=== PATIENT | male | born 1975 ===

== ENCOUNTER 2018-02-12 14:53 | Emergency (ER) | payer MEDICAID ==
[2018-02-12 15:45] VITALS: RESP 18; BMI 20.5
--- NOTE | 2018-02-12 16:05 | ED PDOC ---
Arrival/HPI <Reyna Castro - Last Filed: 02/12/18 16:08> <Thaddeus Cali DO - Last Filed: 02/12/18 18:42> - General Chief Complaint: Lower Extremity Problem/Injury Time Seen by Provider: 02/12/18 15:44 - History of Present Illness Narrative History of Present Illness (Text): 02/12/18 15:59 Patient is a 42 year old male with no significant past medical history who presents to the Emergency department complaining of right lateral thigh pain. Patient says he has had this intermittently for >1 year and describes it as sharp, stabbing-like pain that lasts approximately 2 minutes. Patient says the first time it happened he woke up one morning with the pain. Patient states he came in today because the pain has become to great for him to tolerate. Patient says the pain comes on randomly and is not associated with any specific event. Today the patient noticed it while he was driving. Patient currently denies pain and is having numbness in the area instead. He said it normally alternates between pain and numbness. 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 Patient denies radiation of the pain down to his foot or up towards his back. Denies fever, chills, chest pain, shortness of breath palpitations, cough, calf pain/tenderness, headache, dizziness. (Reyna Castro) Past Medical History - Infectious Disease Hx of Infectious Diseases: None - Tetanus Immunization Tetanus Immunization: Up to Date - Past Medical History Past Medical History: No Previous - Cardiac Hx Cardiac Disorders: No - Pulmonary Hx Respiratory Disorders: No - Neurological Hx Neurological Disorder: No - HEENT Hx HEENT Disorder: No - Renal Hx Renal Disorder: No - Endocrine/Metabolic Hx Endocrine Disorders: No - Hematological/Oncological Hx Blood Disorders: No - Integumentary Hx Dermatological Disorder: No - Musculoskeletal/Rheumatological Hx Musculoskeletal Disorders: No - Gastrointestinal Hx Gastrointestinal Disorders: No - Genitourinary/Gynecological Hx Genitourinary Disorders: No - Psychiatric Hx Psychophysiologic Disorder: No Hx Anxiety: No Hx Bipolar Disorder: No Hx Depression: No Hx Emotional Abuse: No Hx Hallucinations: No Hx Panic Disorder: No Hx Post Traumatic Stress Disorder: No Hx Psychosis: No Hx Physical Abuse: No Hx Schizophrenia: No Hx Sexual Abuse: No Hx Substance Use: Yes (Marijuana) - Past Surgical History Past Surgical History: No Previous - Anesthesia Hx Anesthesia: No Hx Anesthesia Reactions: No Hx Malignant Hyperthermia: No - Suicidal Assessment Feels Threatened In Home Enviroment: No <MatthewReyna - Last Filed: 02/12/18 16:08> Family/Social History Smoking Status: Light Smoker < 10 Cigarettes Daily Hx Alcohol Use: No Hx Substance Use: Yes (Marijuana) Hx Substance Use Treatment: No <MatthewReyna - Last Filed: 02/12/18 16:08> Family/Social History: No Known Family HX <Thaddeus Cali DO - Last Filed: 02/12/18 18:42> Allergies/Home Meds <MatthewReyna - Last Filed: 02/12/18 16:08> <Thaddeus Cali DO - Last Filed: 02/12/18 18:42> Allergies/Adverse Reactions: Allergies No Known Allergies Allergy (Verified 02/12/18 15:46) Review of Systems - Review of Systems Constitutional: Normal Eyes: Normal ENT: Normal Respiratory: Normal. absent: SOB, Cough Cardiovascular: Normal. absent: Chest Pain, Palpitations, Edema, Calf Pain, CHRIS Gastrointestinal: Normal. absent: Abdominal Pain, Constipation, Diarrhea, Nausea, Vomiting Genitourinary Male: Normal. absent: Dysuria, Frequency, Hematuria Musculoskeletal: Myalgias (right lateral thigh). absent: Back Pain, Neck Pain Skin: Normal. absent: Rash, Pruritis Neurological: Other (parasthesia of right lateral thigh). absent: Headache, Dizziness Endocrine: Normal Hemo/Lymphatic: Normal Psychiatric: Normal <Reyna Castro - Last Filed: 02/12/18 16:08> Physical Exam - Systems Exam Head: Present: Atraumatic, Normocephalic Pupils: Present: PERRL Extroacular Muscles: Present: EOMI Conjunctiva: Present: Normal Mouth: Present: Moist Mucous Membranes Neck: Present: Normal Range of Motion Respiratory/Chest: Present: Clear to Auscultation, Good Air Exchange. No: Respiratory Distress, Accessory Muscle Use Cardiovascular: Present: Regular Rate and Rhythm, Normal S1, S2. No: Murmurs Abdomen: Present: Normal Bowel Sounds. No: Tenderness, Distention, Peritoneal Signs Back: Present: Normal Inspection. No: Midline Tenderness, Paraspinal Tenderness , Pain with Leg Raise Upper Extremity: Present: Normal Inspection. No: Cyanosis, Edema Lower Extremity: Present: Normal Inspection, NORMAL PULSES, Normal ROM, Neurovascularly Intact, Capillary Refill < 2 s. No: Edema, CALF TENDERNESS, Tenderness Neurological: Present: GCS=15, Speech Normal Skin: Present: Warm, Dry, Normal Color. No: Rashes Psychiatric: Present: Alert, Oriented x 3, Normal Insight, Normal Concentration <Reyna Castro - Last Filed: 02/12/18 16:08> Vital Signs Temp Pulse Resp BP Pulse Ox 02/12/18 17:00 98 F 64 18 112/60 99 02/12/18 15:45 98.6 F 65 18 101/67 98 - RAD Interpretation Radiology Orders: 02/12/18 15:56 Femur Right [FEMUR MIN 2 VIEWS RT] [RAD] Stat - Medication Orders Current Medication Orders: Discontinued Medications Ketorolac Tromethamine (Toradol) 30 mg IVP STAT STA Stop: 02/12/18 17:05 Last Admin: 02/12/18 17:21 Dose: 30 mg MAR Pain Assessment Document 02/12/18 17:21 LA (Rec: 02/12/18 17:22 LA [id number]) Pain Reassessment Is this a pain reassessment? No Sleep Is patient sleeping during reassessment? No Presence of Pain Presence of Pain Yes Pain Scale Used Pain Scale Used Numeric Location Left, Right or Bilateral Right Pain Location Body Site Thigh Description Intensity of Pain at present 6 Pain Behavior Guarding IVP Administration Document 02/12/18 17:21 LA (Rec: 02/12/18 17:22 LA [id number]) Charges for Administration # of IVP Administrations 1 - PA / CONTACT LENS ASSISTANT / Resident Statement RAEGAN has reviewed & agrees with the documentation as recorded. RAEGAN has examined the patient and agrees with the treatment plan. <Thaddeus Cali DO - Last Filed: 02/12/18 18:42> Disposition/Present on Arrival - Present on Arrival History of DVT/PE: No History of Uncontrolled Diabetes: No Urinary Catheter: No History of Decub. Ulcer: No History Surgical Site Infection Following: None <Reyna Castro - Last Filed: 02/12/18 16:08> - Present on Arrival Any Indicators Present on Arrival: No - Disposition Have Diagnosis and Disposition been Completed?: Yes Disposition Time: 16:40 <Thaddeus Cali DO - Last Filed: 02/12/18 18:42> - Disposition Diagnosis: Thigh pain, musculoskeletal Disposition: HOME/ ROUTINE Condition: GOOD Discharge Instructions (ExitCare): Muscle and Bone Pain (DC) Additional Instructions: Thank you for letting us take care of you today. The emergency medical care you received today was directed at your acute symptoms. If you were prescribed any medication, please fill it and take as directed. It may take several days for your symptoms to resolve. Return to the Emergency Department if your symptoms worsen, do not improve, or if you have any other problems. Please contact your doctor or call one of the physicians/clinics you have been referred to that are listed on the Patient Visit Information form that is included in your discharge packet. Bring any paperwork you were given at discharge with you along with any medications you are taking to your follow up visit. Our treatment cannot replace ongoing medical care by a primary care provider (PCP) outside of the emergency department. Thank you for allowing the [facility] team to be part of your care today. Followup with your primary doctor in 2-3 days for re-evaluation and further management. Prescriptions: Cyclobenzaprine [Cyclobenzaprine HCl] 10 mg PO Q8 PRN #20 tab PRN Reason: Muscle Spasm Ibuprofen [Motrin] 600 mg PO Q6 PRN #20 tab PRN Reason: Pain, Moderate (4-7) Referrals: Lesvia Verde FNP [Primary Care Provider] - Follow up with primary Forms: [employer] (Gu[place]ian), WORK NOTE
--- NOTE | 2018-02-12 17:12 | RAD ---
PROCEDURE: Right femur HISTORY: Right thigh Pain. No history of recent/ related trauma provided COMPARISON: None TECHNIQUE: Standard protocol for this study/examination. FINDINGS: No significant/acute osseous, articular or soft tissue abnormalities. IMPRESSION: No acute findings related to/accounting for the clinical presentation.
[2018-02-12 17:43] VITALS: BP 112/60; PULSE 64; TEMP 98; O2SAT 99
== END 2018-02-12 17:45 | disposition home or self-care (01) ==
LOC: ED 14:53
DX: M79.651 Pain in right thigh (principal)
CPT/HCPCS: 73552; 96374; 99284; J1885